=== PATIENT | male | born 1995 | race Hispanic/Latino ===

== ENCOUNTER 2018-01-04 19:41 | Emergency (ER) | payer SELFPAY ==
[~2018-01-04] VITALS: Ht 182.9 cm; Wt 131.5 kg
--- NOTE | 2018-01-04 21:58 | Diagnostic Imaging Report ---
FOOT LEFT COMPLETE, ANKLE 3+ VIEWS LEFT Comparison: None Clinical history: Injury after tripping, pain Findings: Slight cortical irregularity involving the base of the first digit proximal phalanx only seen on lateral view. Otherwise no acute fracture seen. Moderate soft tissue swelling about the foot and ankle. Impression: Questionable fracture versus artifact related to physeal fusion of the base of the first digit proximal phalanx. Correlate with site of pain and consider 1 week follow up radiographs, as indicated. Signed by: Dr Melany Garcia MD on 01/04/2018 9:55 PM
== END 2018-01-04 22:30 | disposition home or self-care (01) ==
LOC: ER 19:41
DX: S93.432A Sprain of tibiofibular ligament of left ankle, initial encounter (principal); S93.422A Sprain of deltoid ligament of left ankle, initial encounter; X50.1XXA Overexertion from prolonged static or awkward postures, initial encounter; Y92.830 Public park as the place of occurrence of the external cause
CPT/HCPCS: 99283

== ENCOUNTER 2024-05-28 19:11 | Emergency (ER) | payer SELFPAY ==
[~2024-05-28] VITALS: Ht 182.9 cm; Wt 131.5 kg
[2024-05-28 19:24] VITALS: TEMP 98.4
[2024-05-28] MEDS: TETANUS/DIPHTHERIA TOX ADULT 0.5 ML SYR IM ONE (19:31)
[2024-05-28] MEDS ORDERED: TETANUS/DIPHTHERIA TOX ADULT 0.5 ML SYR ONE (19:32)
[2024-05-28 22:01] VITALS: PULSE 98; RESP 20; O2SAT 100
== END 2024-05-28 22:12 | disposition home or self-care (01) ==
LOC: ER 19:14
DX: S01.01XA Laceration without foreign body of scalp, initial encounter (principal); R51.9 Headache, unspecified; Y00.XXXA Assault by blunt object, initial encounter; Y92.89 Other specified places as the place of occurrence of the external cause
CPT/HCPCS: 70450; 90471; 90714; 99283